=== PATIENT | male | born 1995 | race Two or more races ===

== ENCOUNTER 2018-06-15 17:12 | Emergency (ER) | payer OTHER ==
[2018-06-15] MEDS ORDERED: Sodium Chloride 0.9% 1,000 ML IV ONE (17:28)
--- NOTE | 2018-06-15 17:33 | EDM.PDOC ---
ED HPI GENERAL MEDICAL PROBLEM - General Chief Complaint: Chemical Exposure Stated Complaint: BLOOD RAMONA TEST Time Seen by Provider: 06/15/18 17:15 - History of Present Illness INITIAL COMMENTS - FREE TEXT/NARRATIVE: HISTORY AND PHYSICAL: History of present illness: Patient 22-year-old male with no significant past medical history presents with a concern of status post hydrogen sulfide gas exposure with syncope 2 upon arrival here is awake alert with no complaints denies chest pain shortness breath nausea vomiting or other concern. Review of systems: As per history of present illness and below otherwise all systems reviewed and negative. Past medical history: As per history of present illness and as reviewed below otherwise noncontributory. Surgical history: As per history of present illness and as reviewed below otherwise noncontributory. Social history: No reported history of drug or alcohol abuse. Family history: As per history of present illness and as reviewed below otherwise noncontributory. Physical exam: HEENT: Atraumatic, normocephalic, pupils reactive, negative for conjunctival pallor or scleral icterus, mucous membranes moist, throat clear, neck supple, nontender, trachea midline. Lungs: Clear to auscultation, breath sounds equal bilaterally, chest nontender. Heart: S1S2, regular, negative for clicks, rubs, or JVD. Abdomen: Soft, nondistended, nontender. Negative for masses or hepatosplenomegaly. Negative for costovertebral tenderness. Pelvis: Stable nontender. Genitourinary: Deferred. Rectal: Deferred. Extremities: Atraumatic, negative for cords or calf pain. Neurovascular unremarkable. Neuro: Awake, alert, oriented. Cranial nerves II through XII unremarkable. Cerebellum unremarkable. Motor and sensory unremarkable throughout. Exam nonfocal. Diagnostics: CBC CMP and troponin chest x-ray EKG ABG carboxyhemoglobin level lactic acid Therapeutics: Saline 1 L bolus Impression: #1 observation status post-sulfide gas exposure with syncope #2 medical screening exam Definitive disposition and diagnosis as appropriate pending reevaluation and review of above. Chest Pain Score (Numeric/FACES): 1 - Related Data Allergies Allergy/AdvReac Type Severity Reaction Status Date / Time No Known Allergies Allergy Verified 06/15/18 17:18 Home Meds: Home Meds . [No Known Home Meds] 06/15/18 [History] Past Medical History - Past Health History Medical/Surgical History: Denies Medical/Surgical History - Infectious Disease History Infectious Disease History: Reports: None Social & Family History - Family History Family Medical History: Noncontributory - Tobacco Use Smoking Status *Q: Never Smoker Second Hand Smoke Exposure: No - Caffeine Use Caffeine Use: Reports: Coffee - Recreational Drug Use Recreational Drug Use: No ED ROS GENERAL - Review of Systems Review Of Systems: ROS reveals no pertinent complaints other than HPI. ED EXAM, BURN/SMOKE INHALATION - Physical Exam Exam: See Below (See dictation) Course - Vital Signs Last Recorded V/S: Last Vital Signs Temp 36.2 C 06/15/18 17:19 Pulse 76 06/15/18 17:19 Resp 16 06/15/18 17:19 BP 153/83 H 06/15/18 17:19 Pulse Ox 98 06/15/18 17:19 - Orders/Labs/Meds Orders: Active Orders 24 hr Category Date Time Status Cardiac Monitoring [RC] . DIRECTED Care 06/15/18 17:28 Active EKG Documentation Completion [RC] STAT Care 06/15/18 17:28 Active Chest 1V Frontal [CR] Stat Exams 06/15/18 17:28 Ordered CBC WITH AUTO DIFF [HEME] Stat Lab 06/15/18 17:41 Received COMPREHENSIVE METABOLIC PN,CMP [CHEM] Stat Lab 06/15/18 17:41 Received INR,PT,PROTHROMBIN TIME [COAG] Stat Lab 06/15/18 17:41 Received TROPONIN I [CHEM] Stat Lab 06/15/18 17:41 Received Sodium Chloride 0.9% [Normal Saline] 1,000 ml Med 06/15/18 17:28 Active IV STAT Medication Orders Sodium Chloride (Normal Saline) 1,000 mls @ 999 mls/hr IV STAT ONE Stop: 06/15/18 18:28 Labs: Laboratory Tests 06/15/18 06/15/18 06/15/18 Range/Units 17:36 17:36 17:36 ABG pH 7.381 (7.35-7.45) ABG pCO2 38 (35-45) mmHG ABG pO2 100 (75-100) mmHG ABG HCO3 23 (22-26) mEq/L ABG Total CO2 19.8 ABG Base Excess -2.2 L (-2.0-2.0) ABG Carboxyhemoglobin < 0.4 (0-15) % Lactate 0.5 (0.20-2.00) mmol/L Meds: Medications Generic Name Dose Route Start Last Admin Trade Name Arslan PRN Reason Stop Dose Admin Sodium Chloride 1,000 mls @ 999 mls/hr 06/15/18 17:28 Normal Saline IV 06/15/18 18:28 STAT ONE Departure - Departure Time of Disposition: 17:50 Disposition: Home, Self-Care 01 Condition: Good Clinical Impression: History of exposure to noxious chemical, Encounter for medical screening examination, Syncope - Discharge Information Referrals: PCP,None [Primary Care Provider] - Forms: ED Department Discharge Additional Instructions: The following information is given to patients seen in the emergency department who are being discharged to home. This information is to outline your options for follow-up care. We provide all patients seen in our emergency department with a follow-up referral. The need for follow-up, as well as the timing and circumstances, are variable depending upon the specifics of your emergency department visit. If you don't have a primary care physician on staff, we will provide you with a referral. We always advise you to contact your personal physician following an emergency department visit to inform them of the circumstance of the visit and for follow-up with them and/or the need for any referrals to a consulting specialist. The emergency department will also refer you to a specialist when appropriate. This referral assures that you have the opportunity for followup care with a specialist. All of these measure are taken in an effort to provide you with optimal care, which includes your followup. Under all circumstances we always encourage you to contact your private physician who remains a resource for coordinating your care. When calling for followup care, please make the office aware that this follow-up is from your recent emergency room visit. If for any reason you are refused follow-up, please contact the [facility] emergency department at and asked to speak to the emergency department charge nurse. Follow-up occupational medicine rest push fluids as discussed return as needed as discussed - My Orders Last 24 Hours: My Active Orders 06/15/18 17:28 Cardiac Monitoring [RC] . DIRECTED EKG Documentation Completion [RC] STAT Chest 1V Frontal [CR] Stat Sodium Chloride 0.9% [Normal Saline] 1,000 ml IV STAT 06/15/18 17:41 CBC WITH AUTO DIFF [HEME] Stat COMPREHENSIVE METABOLIC PN,CMP [CHEM] Stat INR,PT,PROTHROMBIN TIME [COAG] Stat TROPONIN I [CHEM] Stat - Assessment/Plan Last 24 Hours: My Active Orders 06/15/18 17:28 Cardiac Monitoring [RC] . DIRECTED EKG Documentation Completion [RC] STAT Chest 1V Frontal [CR] Stat Sodium Chloride 0.9% [Normal Saline] 1,000 ml IV STAT 06/15/18 17:41 CBC WITH AUTO DIFF [HEME] Stat COMPREHENSIVE METABOLIC PN,CMP [CHEM] Stat INR,PT,PROTHROMBIN TIME [COAG] Stat TROPONIN I [CHEM] Stat
[2018-06-15 18:11] LABS: CHLORIDE,CL 105 mmol/L (98-107); SODIUM,NA 140 mmol/L (136-148)
--- NOTE | 2018-06-15 18:11 | CR ---
INDICATION: exposed to H2S, syncope x2 TECHNIQUE: Chest 1 view. COMPARISON: None. FINDINGS: Cardiovascular and mediastinum: Heart size and vasculature are normal in caliber and appearance. Mediastinum is within normal limits. Lungs and pleural space: Lungs are clear. No sign of infiltrate or mass. No sign of pleural effusion. No pneumothorax. Bones and soft tissues: No significant findings. IMPRESSION: Unremarkable chest. Dictated by: Mark Sahu MD @ 06/15/2018 18:10:58 (Electronically Signed)
== END 2018-06-15 18:51 | disposition home or self-care (01) ==
LOC: MW.ED 17:12
DX: T59.6X1A Toxic effect of hydrogen sulfide, accidental (unintentional), initial encounter (principal); R55 Syncope and collapse
CPT/HCPCS: 36415; 36600; 71045; 80053; 82375; 82803; 83605; 84484; 85025; 85610; 93005; 96360; 99284; J7040